=== PATIENT | female | born 1975 | race African-American/Black ===

== ENCOUNTER 2017-05-09 17:01 | Emergency (ER) | payer SELFPAY ==
[2017-05-09] MEDS ORDERED: Metoclopramide HCl 10 MG/2 ML VIAL ONE (17:18)
[2017-05-09] MEDS ORDERED: diphenhydrAMINE 50 MG/ML VIAL ONE (17:18)
[2017-05-09] MEDS ORDERED: Ketorolac Tromethamine 30 MG/ML VIAL ONE (17:55)
== END 2017-05-09 18:38 | disposition home or self-care (01) ==
LOC: ERS 17:01
DX: R51 Headache (principal)
CPT/HCPCS: 96361; 96374; 96375; J1200; J1885; J2765

== ENCOUNTER 2019-05-09 11:31 | Emergency (ER) | payer SELFPAY | END 2019-05-09 12:35 | disposition home or self-care (01) | LOC: ERS 11:31 | DX: S46.911A Strain of unspecified muscle, fascia and tendon at shoulder and upper arm level, right arm, initial encounter (principal); X50.9XXA Other and unspecified overexertion or strenuous movements or postures, initial encounter | CPT/HCPCS: 99283 ==